=== PATIENT | female | born 1995 | race Caucasian/White ===

== ENCOUNTER → 2016-06-21 | Outpatient (CLI) | payer BC, OTHER ==
[2016-06-21 18:03] LABS: ANION GAP 9 MEQ/L (8-16); BLOOD UREA NITROGEN 10 MG/DL (7-18); CALCIUM LEVEL 8.3 MG/DL (8.5-10.1); CARBON DIOXIDE LEVEL 27 MEQ/L (21-32); CHLORIDE LEVEL 108 MEQ/L (98-107); CREATININE FOR GFR 0.81 MG/DL (0.55-1.02); GLUCOSE, FASTING 93 MG/DL (70-105); POTASSIUM SERUM 4.1 MEQ/L (3.5-5.1); SODIUM LEVEL 144 MEQ/L (136-145)
[2016-06-21 18:23] LABS: MEAN CORPUSCULAR HEMOGLOBIN 25.1 pg (27.0-33.0); MEAN CORPUSCULAR HGB CONC 31.7 g/dl (32.0-36.5); RED CELL DISTRIBUTION WIDTH 12.8 % (11.5-14.5); WHITE BLOOD COUNT 4.4 K/mm3 (4.0-10.0)
== END ==
LOC: M SMT 14:39
PROVIDERS: ATTEND Nurse Practitioner Women's Health
DX: N36.9 Urethral disorder, unspecified (principal)

== ENCOUNTER → 2016-07-09 | Day surgery (SDC) | payer BC, OTHER ==
[~2016-07-09] VITALS: Ht 165.1 cm; Wt 54.4 kg
[~2016-07-09] MED LIST: CIPROFLOXACIN 400 MG in APPROPRIATE DILUENT 1 EA IV ONE; CIPROFLOXACIN/D5W 400 MG/200 ML BAG (J0744) As Ordered ONE; LIDOCAINE 2% INJ 100 MG/5 ML SDV (FOR ANES.) As Ordered ONE; LR 1,000 ML IV SCH; MIDAZOLAM INJ 2 MG/2 ML VIAL (J2250) As Ordered ONE; PROPOFOL 200 MG/20 ML VIAL As Ordered ONE; YAZ3TAB PO; fentaNYL 100 MCG/2 ML INJECTION (J3010) As Ordered ONE
[2016-07-09 12:27] LABS: CONTROL LINE HCG INT CTR LINE PRESENT
[2016-07-09 15:15] VITALS: BP 122/66
--- NOTE | 2016-07-09 21:40 | RO ---
DATE OF PROCEDURE: 07/09/2016 PREOPERATIVE DIAGNOSIS: Urethral mass. POSTOPERATIVE DIAGNOSIS: Urethral mass. PROCEDURE: Excision of urethral mass and cystoscopy. SURGEON: Dr. Chikis Goyal SUPERVISOR FITTING: ANESTHESIA: MAC. SPECIMENS: Urethral lesion. INDICATIONS FOR PROCEDURE: The patient is a 21-year-old female who had noticed bleeding with intercourse for the last several months. She had no urinary symptoms. On physical examination, there was a large urethral mass seen coming off the 2 o'clock position of the urethra that was slightly papillary in nature and appeared that it could be HPV. There was no other lesions seen in the vagina. After discussing all different options, alternatives, risks, and benefits, it was decided to bring the patient to the operating room for more definitive treatment. It was offered to do this in the office, but she said that she would prefer IV sedation. Informed consent was obtained in both verbal and written form. DESCRIPTION OF PROCEDURE: The patient was brought into the operating room. Sequential compression devices and thromboembolism deterrent (ROME) stockings were in place and preoperative antibiotics had been given. ]Next, IV sedation was given, and the patient was placed in the lithotomy position with careful attention paid that her pressure points were well padded and protected. Next, ,she was prepped and draped in the usual fashion. This urethral mass was grasped using an Allis, and the base of it was now well seen coming off the 2 o'clock position at the superior part of the urethra on the vaginal mucosa. At this point, using a Bovie, cutting was used to remove the mass. When the mass was completely removed, coagulation was then done to stop any bleeding. The urethra itself was completely intact. Cystoscopy was performed, and there were no other lesions seen within the urethra and the urethra was open without any evidence of lesions or strictures. Upon entering the bladder, both ureteral orifices were seen. There was no evidence of stones, erythematous patches, lesions or other abnormalities. A vaginal exam also showed no further lesions with in the vagina. The patient tolerated the procedure well and was returned to the recovery room in stable condition.
== END | disposition home or self-care (01) ==
LOC: M SDC 11:52
PROVIDERS: ATTEND Specialist
DX: R87.811 Vaginal high risk human papillomavirus (HPV) DNA test positive (principal); Z79.899 Other long term (current) drug therapy
CPT/HCPCS: 11422; 11423; 36415; 52000; 84703; 88305; 88342; J0744; J2250; J3010

== ENCOUNTER 2016-10-28 18:42 | Emergency (ER) | payer BC, OTHER ==
[~2016-10-28] VITALS: Ht 165.1 cm; Wt 52.4 kg
[~2016-10-28 18:42] MED LIST changes: -CIPROFLOXACIN 400 MG in APPROPRIATE DILUENT 1 EA IV ONE; -CIPROFLOXACIN/D5W 400 MG/200 ML BAG (J0744) As Ordered ONE; -LIDOCAINE 2% INJ 100 MG/5 ML SDV (FOR ANES.) As Ordered ONE; -LR 1,000 ML IV SCH; -MIDAZOLAM INJ 2 MG/2 ML VIAL (J2250) As Ordered ONE; -PROPOFOL 200 MG/20 ML VIAL As Ordered ONE; +YAZ1TAB PO; -YAZ3TAB PO; -fentaNYL 100 MCG/2 ML INJECTION (J3010) As Ordered ONE
[2016-10-28 18:43] VITALS: BP 118/78
== END 2016-10-28 20:21 | disposition home or self-care (01) ==
LOC: M ED 18:42
DX: L42 Pityriasis rosea (principal); Z79.3 Long term (current) use of hormonal contraceptives; Z88.0 Allergy status to penicillin